=== PATIENT | female | born 1985 | race African-American/Black ===

== ENCOUNTER 2022-04-04 10:18 | Emergency (ER) | payer MEDICAID ==
[~2022-04-04] VITALS: Ht 177.8 cm; Wt 77.1 kg
[2022-04-04 10:29] VITALS: BP 122/74
--- NOTE | 2022-04-04 11:12 | NUR ---
PT SWABBED AND SENT TO LAB
[2022-04-04] MEDS ORDERED: SUD30 PO ×2 (12:56→13:12)
[2022-04-04] MEDS ORDERED: IBUP-2213 PO ×2 (12:56→13:12)
[2022-04-04] MEDS ORDERED: PROM118S5 PO ×2 (12:56→13:12)
[2022-04-04] MEDS ORDERED: ALBU0.0912 INH ×2 (12:57→13:12)
--- NOTE | 2022-04-04 13:18 | NUR ---
Patient discharged with v/s stable. Written and verbal after care instructions given and explained. Patient alert, oriented and verbalized understanding of instructions. Ambulatory with steady gait. All questions addressed prior to discharge. ID band removed. Patient advised to follow up with PMD. Rx of ALBUTEROL, SUDAFED given. Patient educated on indication of medication including possible reaction and side effects. Opportunity to ask questions provided and answered.
== END 2022-04-04 13:18 | disposition home or self-care (01) ==
LOC: MED 10:18
DX: J06.9 Acute upper respiratory infection, unspecified (principal); Z20.822 Contact with and (suspected) exposure to COVID-19; J20.9 Acute bronchitis, unspecified; J45.909 Unspecified asthma, uncomplicated; I10 Essential (primary) hypertension; Z79.899 Other long term (current) drug therapy
CPT/HCPCS: 71045; 99284

== ENCOUNTER 2022-09-10 22:40 | Emergency (ER) | payer MEDICAID ==
[~2022-09-10] VITALS: Ht 177.8 cm; Wt 93.0 kg
[~2022-09-10 22:40] MED LIST: ALBU0.0912 INH; IBUP-2213 PO; PROM118S5 PO; SUD30 PO
[2022-09-10 22:54] VITALS: BP 130/66; PULSE 68; RESP 16; TEMP 97.4; O2SAT 100
--- NOTE | 2022-09-10 23:00 | NUR ---
TO LOBBY FOLLOWING TRIAGE
--- NOTE | 2022-09-11 01:53 | NUR ---
pt seen resting on bed with eyes closed. side rail up. on monitor. not in distress. chest rise and fall symmetrically
[2022-09-11 03:45] VITALS: BP 125/70; PULSE 74; RESP 16; TEMP 97.6; O2SAT 100
--- NOTE | 2022-09-11 03:45 | NUR ---
Patient discharged with v/s stable. Written and verbal after care instructions given and explained. Patient verbalized understanding. Ambulatory with steady gait. All questions addressed prior to discharge. Advised to follow up with PMD.
== END 2022-09-11 03:45 | disposition home or self-care (01) ==
LOC: MED 22:40
DX: M79.671 Pain in right foot (principal); M79.672 Pain in left foot; J45.909 Unspecified asthma, uncomplicated; I10 Essential (primary) hypertension; Z59.00 Homelessness unspecified; Z79.899 Other long term (current) drug therapy
CPT/HCPCS: 99281